=== PATIENT | male | born 1990 | race Two or more races ===

== ENCOUNTER 2017-01-10 17:47 | Emergency (ER) | payer OTHER ==
[~2017-01-10] VITALS: Ht 167.6 cm; Wt 47.6 kg
[2017-01-10 17:50] VITALS: BP 119/57
[2017-01-10] MEDS ORDERED: NAPROXEN 500 MG TABLET PO STA (18:01)
--- NOTE | 2017-01-10 18:04 | PHYS DOC ---
Past Medical History Past Medical History: No Pertinent History Past Surgical History: No Surgical History Alcohol Use: Occasionally Drug Use: None Adult General Chief Complaint Chief Complaint: LOWEREXTREMITY INJURY HPI HPI Patient is a 26 year old male with no significant medical history who presents with pain on the right cabral after being kicked during soccer Review of Systems Review of Systems Constitutional: Denies fever or chills [] Eyes: Denies change in visual acuity, redness, or eye pain [] Musculoskeletal: pain on the right cabral Integument: Denies rash or skin lesions [] Neurologic: Denies headache, focal weakness or sensory changes [] Endocrine: Denies polyuria or polydipsia [] Current Medications Current Medications Current Medications Medications (Trade) Dose Ordered Sig/Marlin Start Time Stop Time Status Last Admin Dose Admin Acetaminophen/ Codeine Phosphate (Tylenol #3) 1 tab 1X ONCE 01/10/17 18:30 01/10/17 18:31 DC 01/10/17 18:09 1 TAB Naproxen (Naprosyn) 500 mg 1X STAT 01/10/17 18:01 01/10/17 18:03 DC 01/10/17 18:09 500 MG Allergies Allergies Allergies Coded Allergies Type Severity Reaction Last Updated Verified No Known Drug Allergies 10/15/14 No Physical Exam Physical Exam Constitutional: Well developed, well nourished, no acute distress, non-toxic appearance. [] HENT: Normocephalic, atraumatic, bilateral external ears normal, oropharynx moist, no oral exudates, nose normal. [] Skin: Warm, dry, no erythema, no rash. [] Back: No tenderness, no CVA tenderness. [] Extremities: Right proximal cabral with small amount of bruising. Tenderness on palpation of right proximal cabral. Full passive range of motion to the right lower extremity. +2 right pedal pulse. Cap refill less than 2 seconds the right toes. Sensation intact to the right LE Neurologic: Alert and oriented X 3, normal motor function, normal sensory function, no focal deficits noted. [] Psychologic: Affect normal, judgement normal, mood normal. [] Current Patient Data Vital Signs Vital Signs Date Time Temp Pulse Resp B/P (MAP) Pulse Ox O2 Delivery O2 Flow Rate FiO2 01/10/17 17:50 98.2 85 16 100 Room Air 98.2 EKG EKG [] Radiology/Procedures Radiology/Procedures []Right tib-fib x-rays [address] Russell are negative for any acute findings Course & Med Decision Making Course & Med Decision Making Pertinent Labs and Imaging studies reviewed. (See chart for details) Patient has contusion to the right cabral after being kicked during soccer. Right tib-fib x-rays [address] Russell are negative for any acute findings. Chencho wrap applied to patient's right cabral by the ED RN, neurovascular exam done by me is normal, cap refill less than 2 seconds. Ice elevation encouraged. Naproxen for pain. Follow-up with open one week. Dragon Disclaimer Dragon Disclaimer This electronic medical record was generated, in whole or in part, using a voice recognition dictation system. Departure Departure Impression: Primary Impression: Contusion of right lower extremity Disposition: HOME, SELF-CARE Condition: STABLE Referrals: NO PCP (PCP) JOAO CUENCA MD follow up in one week if pain continues Patient Instructions: Contusion, [id number] Additional Instructions: You have right cabral contusion. Your x-rays are negative for any broken bones. Ice and elevate the extremity. Take the prescribed pain medicine as needed. You can walk on your right lower extremity. You can follow-up with the doctor provided in one week if pain continues. Scripts Naproxen (NAPROXEN) 500 Mg Tablet.dr 1 TAB PO BID, #60 TAB 2 Refills Prov: GENE SANTIAGO APRN 01/10/17 Problem Qualifiers Primary Impression: Contusion of right lower extremity Encounter type: initial encounter Qualified Codes: S80.11XA - Contusion of right lower leg, initial encounter GENE SANTIAGO APRN Jan 10, 2017 18:04
[2017-01-10] MEDS ORDERED: ACETAMINOPHEN/CODEINE 300/30MG TABLET. PO ONE (18:30)
[2017-01-10] MEDS ORDERED: NAPR500T8 PO (18:53)
--- NOTE | 2017-01-11 09:29 | RAD ---
Indication injury, pain. AP and lateral views of the right tibia and fibula were obtained. No bony abnormality is seen.
== END 2017-01-10 18:57 | disposition home or self-care (01) ==
LOC: ER 17:47
DX: S80.11XA Contusion of right lower leg, initial encounter (principal); W50.1XXA Accidental kick by another person, initial encounter; Y93.66 Activity, soccer; Y92.89 Other specified places as the place of occurrence of the external cause; Y99.8 Other external cause status
CPT/HCPCS: 73590; 99284